=== PATIENT | female | born 1965 | race Native Hawaiian/Other Pacific Islander ===

== ENCOUNTER 2017-01-02 11:17 | Outpatient (CLI) | payer OTHER ==
[~2017-01-02 11:17] MED LIST: ACET-655 PO; ACYC200C14 PO; ACYCLOVIR400 MG PO; ALBU90AE13 INH; ALBUTEROL0.083 % IN; CELEXA20 MG PO; CLON0.5T36 PO; DIVIGEL PO; DOXYCYCL HYC100 M4 PO; FLUT0.05 NAS; FLUTICASONE0.05 % EX; METHYLPR SS125 MG IJ; MUPI2OIN2 TOP; PROZAC10 MG PO; SOMA350 MG PO; TRIM800T12 PO; ZOVIRAX5 % EX
== END 2017-01-02 12:30 | disposition home or self-care (01) ==
LOC: MAMMO 11:17
DX: Z12.31 Encounter for screening mammogram for malignant neoplasm of breast (principal); M79.89 Other specified soft tissue disorders

== ENCOUNTER 2017-06-24 08:12 | Outpatient (CLI) | payer OTHER | END 2017-06-24 21:30 | disposition home or self-care (01) | LOC: CT 08:12 | DX: R05 Cough (principal); R79.89 Other specified abnormal findings of blood chemistry; D07.1 Carcinoma in situ of vulva | CPT/HCPCS: Q9963 ==

== ENCOUNTER 2018-05-09 13:04 | Outpatient (CLI) | payer OTHER | END 2018-05-09 19:03 | disposition home or self-care (01) | LOC: MAMMO 13:04 | DX: Z12.31 Encounter for screening mammogram for malignant neoplasm of breast (principal) ==

== ENCOUNTER 2018-07-10 13:54 | Outpatient (CLI) | payer OTHER | END 2018-07-10 20:35 | disposition home or self-care (01) | LOC: RAD 13:54 | DX: M54.5 Low back pain (principal) ==

== ENCOUNTER 2018-10-24 10:47 | Outpatient (CLI) | payer OTHER | END 2018-10-24 23:38 | disposition home or self-care (01) | LOC: MRI 10:47 | DX: M54.5 Low back pain (principal) ==

== ENCOUNTER 2018-12-29 10:59 | Outpatient (CLI) | payer OTHER | END 2018-12-29 20:18 | disposition home or self-care (01) | LOC: US 10:59 | DX: R59.0 Localized enlarged lymph nodes (principal) ==

== ENCOUNTER 2019-06-05 13:41 | Outpatient (CLI) | payer OTHER | END 2019-06-05 19:45 | disposition home or self-care (01) | LOC: MRI 13:41 | DX: M77.32 Calcaneal spur, left foot (principal) ==

== ENCOUNTER 2019-10-16 10:06 | Outpatient (CLI) | payer OTHER | END 2019-10-16 19:35 | disposition home or self-care (01) | LOC: CT 10:06 | DX: J44.9 Chronic obstructive pulmonary disease, unspecified (principal); R05 Cough; Z79.899 Other long term (current) drug therapy | CPT/HCPCS: 36415; 82565; 84520; Q9963 ==

== ENCOUNTER 2020-03-17 13:32 | Outpatient (CLI) | payer OTHER | END 2020-03-17 19:06 | disposition home or self-care (01) | LOC: MRI 13:32 | PROVIDERS: ATTEND Internal Medicine | DX: M54.5 Low back pain (principal); M25.551 Pain in right hip ==

== ENCOUNTER 2020-05-26 09:37 | Outpatient (CLI) | payer OTHER | END 2020-05-26 19:47 | disposition home or self-care (01) | LOC: MAMMO 09:37 | PROVIDERS: ATTEND Internal Medicine | DX: R07.1 Chest pain on breathing (principal); R06.02 Shortness of breath; Z12.31 Encounter for screening mammogram for malignant neoplasm of breast | CPT/HCPCS: 36415; 82565; 84520; Q9963 ==

== ENCOUNTER 2020-07-11 12:47 | Outpatient (CLI) | payer OTHER | END 2020-07-11 21:38 | disposition home or self-care (01) | LOC: US 12:47 | PROVIDERS: ATTEND Internal Medicine | DX: E04.1 Nontoxic single thyroid nodule (principal) ==

== ENCOUNTER 2021-09-01 13:04 | Outpatient (CLI) | payer OTHER | END 2021-09-01 18:59 | disposition home or self-care (01) | LOC: MAMMO 13:04 | PROVIDERS: ATTEND Specialist | DX: Z12.31 Encounter for screening mammogram for malignant neoplasm of breast (principal) ==

== ENCOUNTER 2022-12-03 12:03 | Outpatient (CLI) | payer OTHER | END 2022-12-03 20:23 | disposition home or self-care (01) | LOC: MAMMO 12:03 → RAD 12:03 → MAMMO 20:23 | PROVIDERS: ATTEND Specialist | DX: Z12.31 Encounter for screening mammogram for malignant neoplasm of breast (principal); M54.89 Other dorsalgia; M51.36 Other intervertebral disc degeneration, lumbar region; M54.17 Radiculopathy, lumbosacral region; M54.31 Sciatica, right side ==

== ENCOUNTER 2023-01-28 13:57 | Outpatient (CLI) | payer OTHER | END 2023-01-28 19:17 | disposition home or self-care (01) | LOC: RAD 13:57 | PROVIDERS: ATTEND Internal Medicine Sleep Medicine | DX: R06.09 Other forms of dyspnea (principal) ==